=== PATIENT | male | born 1970 | race Caucasian/White ===

== ENCOUNTER 2017-05-20 12:49 | Emergency (ER) | payer MEDICARE, MEDICAID ==
[2017-05-20 13:05] VITALS: BP 140/86
[2017-05-20] MEDS ORDERED: Diphtheria,Pertussis(Acell),Tetanus Vaccine 0.5 ML SDV IM ONE (13:17)
[2017-05-20] MEDS ORDERED: Bacitracin/Neomycin/Polymyxin B Oint 0.9 GM U/D Packet TOP ONE (13:17)
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
== END 2017-05-20 14:45 | disposition home or self-care (01) ==
LOC: LL.ED 12:49
DX: S61.411A Laceration without foreign body of right hand, initial encounter (principal); E11.65 Type 2 diabetes mellitus with hyperglycemia; E11.40 Type 2 diabetes mellitus with diabetic neuropathy, unspecified; F41.8 Other specified anxiety disorders; J45.20 Mild intermittent asthma, uncomplicated; E66.9 Obesity, unspecified; I10 Essential (primary) hypertension; Z68.35 Body mass index [BMI] 35.0-35.9, adult; Z79.4 Long term (current) use of insulin; Z98.890 Other specified postprocedural states; Z87.891 Personal history of nicotine dependence; Z79.899 Other long term (current) drug therapy; Z88.2 Allergy status to sulfonamides; W45.8XXA Other foreign body or object entering through skin, initial encounter; Z23 Encounter for immunization
CPT/HCPCS: 12002; 12042; 90471; 99283; 99284